=== PATIENT | male | born 1960 | race Caucasian/White ===

== ENCOUNTER 2020-05-16 15:36 | Inpatient (IN) | payer OTHER ==
[~2020-05-16] VITALS: Ht 180.3 cm; Wt 74.2 kg
--- NOTE | 2020-05-16 15:44 | PHYS DOC ---
Past History Past Medical History: Hypertension Adult General HPI HPI Patient is a 60yo male presenting from home via EMS for weakness. Patient lives with sister and brother in law and was seen having a witnessed mechanical fall in kitchen fall backwards onto backside, no LOC, did not hit head. Sister could not get him up and subsequently called EMS for assistance. On arrival, patient hypertensive without any other abnormalities. Sister expressed concern for potential UTI as he has history of this causing similar episodes of weakness in the past. Patient reports history of HTN, unknown what prior medication he was taking but has not had this in +1 year as "my sister couldn't afford to buy it for me". No fever or COVID 19 symptoms, no CP or other concerning symptoms reported Review of Systems Review of Systems Fourteen body systems of review of systems have been reviewed. See HPI for pertinent positives and negative responses, other uribe all other systems are negative, non-pertinent or non-contributory Physical Exam Physical Exam Constitutional: NAD, thin, poor hygeine, appears malnourished HENT: Normocephalic, atraumatic, bilateral external ears normal, oropharynx moist, no oral exudates, nose normal. Eyes: PERRLA, EOMI, conjunctiva normal, no discharge. Neck: Normal range of motion, no tenderness, supple, no stridor. Cardiovascular: Heart rate regular, sinus rhythm, no murmurs rubs or gallops Lungs & Thorax: Bilateral breath sounds clear to auscultation Abdomen: Bowel sounds normal, soft, no tenderness, no masses, no pulsatile masses. Nonsurgical abdomen, no peritoneal signs Skin: Warm, dry, no erythema, no rash. Back: No tenderness, no CVA tenderness. Extremities: No tenderness, no cyanosis, no clubbing, ROM intact, no edema. Neurologic: Alert and oriented X 3, grossly normal motor & sensory function, no focal deficits noted. Psychologic: Flat affect, judgement normal, depressed mood Current Patient Data Vital Signs Vital Signs Date Time Temp Pulse Resp B/P (MAP) Pulse Ox O2 Delivery O2 Flow Rate FiO2 05/16/20 19:31 87 20 204/115 (144) 95 05/16/20 15:45 98.4 Room Air Lab Results Laboratory Tests Test 05/16/20 15:44 White Blood Count 10.0 x10^3/uL (4.0-11.0) Red Blood Count 5.74 x10^6/uL (4.30-5.70) Hemoglobin 15.2 g/dL (13.0-17.5) Hematocrit 47.3 % (39.0-53.0) Mean Corpuscular Volume 82 fL (79-100) Mean Corpuscular Hemoglobin 27 pg (25-35) Mean Corpuscular Hemoglobin Concent 32 g/dL (31-37) Red Cell Distribution Width 14.3 % (11.5-14.5) Platelet Count 353 x10^3/uL (140-400) Neutrophils (%) (Auto) 71 % (31-73) Lymphocytes (%) (Auto) 21 % (24-48) Monocytes (%) (Auto) 6 % (0-9) Eosinophils (%) (Auto) 1 % (0-3) Basophils (%) (Auto) 1 % (0-3) Neutrophils # (Auto) 7.1 x10^3uL (1.8-7.7) Lymphocytes # (Auto) 2.1 x10^3/uL (1.0-4.8) Monocytes # (Auto) 0.6 x10^3/uL (0.0-1.1) Eosinophils # (Auto) 0.1 x10^3/uL (0.0-0.7) Basophils # (Auto) 0.1 x10^3/uL (0.0-0.2) Sodium Level 140 mmol/L (136-145) Potassium Level 2.4 mmol/L (3.5-5.1) Chloride Level 100 mmol/L (98-107) Carbon Dioxide Level 34 mmol/L (21-32) Anion Gap 6 (6-14) Blood Urea Nitrogen 9 mg/dL (8-26) Creatinine 1.3 mg/dL (0.7-1.3) Estimated GFR (Cockcroft-Gault) 56.7 BUN/Creatinine Ratio 7 (6-20) Glucose Level 176 mg/dL (70-99) Calcium Level 9.1 mg/dL (8.5-10.1) Magnesium Level 2.0 mg/dL (1.8-2.4) Total Bilirubin 0.6 mg/dL (0.2-1.0) Aspartate Amino Transf (AST/SGOT) 19 U/L (15-37) Alanine Aminotransferase (ALT/SGPT) 18 U/L (16-63) Alkaline Phosphatase 100 U/L (46-116) Total Protein 7.4 g/dL (6.4-8.2) Albumin 3.7 g/dL (3.4-5.0) Albumin/Globulin Ratio 1.0 (1.0-1.7) EKG EKG EKG ordered and interpreted by myself at 1606 hrs. as sinus rhythm at 81 bpm, unremarkable intervals, no axis deviation, no ischemic findings, no STEMI Radiology/Procedures Radiology/Procedures [] Heart Score HEART Score for Chest Pain: HEART Score for Chest Pain Response (Comments) Value History Slighlty/Non-Suspicious 0 ECG Normal 0 Age >45 - < 65 1 Risk Factors 1 or 2 Risk Factors 1 Troponin < Normal Limit 0 Total 2 Risk Factors: Risk Factors: DM, Current or recent (<one month) smoker, HTN, HLP, family history of CAD, obesity. Risk Scores: Risk Factors: DM, Current or recent (<one month) smoker, HTN, HLP, family history of CAD, obesity. Course & Med Decision Making Course & Med Decision Making Pertinent Labs and Imaging studies reviewed. (See chart for details) Discussed HTN and hypokalemia in dangerous ranges. 40meq KDur and 20mg Lisinopril administered Dr. Mercado contacted and case discussed, he agreed for admission under his care for continued medical management I updated patient on proposed plan of care and he was amenable. All questions and concerns addressed prior to ED transport to [facility] in stable condition Dragon Disclaimer Dragon Disclaimer This electronic medical record was generated, in whole or in part, using a voice recognition dictation system. Departure Departure: Impression: Primary Impression: Hypokalemia Additional Impression: HTN (hypertension) Disposition: 09 ADMITTED INPT THIS HOSP Admitting Physician: Saroj Mercado Condition: STABLE Problem Qualifiers NETTIE MARTINS DO May 16, 2020 15:44
[2020-05-16 16:18] LABS: BASO # 0.1 x10^3/uL (0.0-0.2); BASO % 1 % (0-3); EOS # 0.1 x10^3/uL (0.0-0.7); EOS % 1 % (0-3); HEMATOCRIT 47.3 % (39.0-53.0); HEMOGLOBIN 15.2 g/dL (13.0-17.5); LYMPH # 2.1 x10^3/uL (1.0-4.8); LYMPH % 21 % (24-48); MEAN CORPUSCULAR HEMOGLOBIN 27 pg (25-35); MEAN CORPUSCULAR HGB CONC 32 g/dL (31-37); MEAN CORPUSCULAR VOLUME 82 fL (79-100); MONO # 0.6 x10^3/uL (0.0-1.1); MONO % 6 % (0-9); NEUT # 7.1 x10^3uL (1.8-7.7); NEUT % 71 % (31-73); PLATELET COUNT 353 x10^3/uL (140-400); RED BLOOD COUNT 5.74 x10^6/uL (4.30-5.70); RED CELL DISTRIBUTION WIDTH 14.3 % (11.5-14.5)
[2020-05-16 16:37] LABS: ALBUMIN 3.7 g/dL (3.4-5.0); CALCIUM 9.1 mg/dL (8.5-10.1); CREATININE 1.3 mg/dL (0.7-1.3); GFR 56.7; TOTAL BILIRUBIN 0.6 mg/dL (0.2-1.0); TOTAL PROTEIN 7.4 g/dL (6.4-8.2)
[2020-05-16 16:39] LABS: POTASSIUM 2.4 mmol/L (3.5-5.1)
--- NOTE | 2020-05-16 17:15 | EKG ---
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
[2020-05-16] MEDS ORDERED: POTASSIUM CL 40MEQ IN 0.9%NACL 1,000 ML IV ONE (17:30)
[2020-05-16] MEDS ORDERED: POTASSIUM CHLORIDE 20 MEQ TABLET.ER. PO ONE (17:30)
[2020-05-16] MEDS ORDERED: LISINOPRIL 10 MG TABLET PO ONE (17:45)
--- NOTE | 2020-05-16 19:41 | NUR ---
The patient, GALLO JARRETT, 60 y/o, M admitted by TINY CASTANO MD, was given written information regarding hospital policies, unit procedures and contact persons. Valuables were checked and documented. Vitals taken. Pt is A&Ox4, up with 1 assist, has expressive aphasia due to stroke in 2019. Pt is currently in bed watching TV. Will continue to monitor.
[2020-05-16 21:52] VITALS: BP 175/84
--- NOTE | 2020-05-16 22:50 | NUR ---
PT UNABLE TO VERIFY MEDICATIONS OR WHAT DR HE SEES. CALLED BROTHER KWABENA TO VERIFY MEDICATIONS AND DOCTOR OF THE PT. NO ANSWER
--- NOTE | 2020-05-16 22:59 | NUR ---
CALLED TO UPDATE ON PTS CONDITION. DIDNT WANT TO ORDER ANY MEDICATION TO TREAT PTS ELEVATED BLOOD PRESSURE. STATED HE WILL WRITE A SCRIPT FOR THE PT IN THE MORNING AND IS HOPING TO SEND HIM HOME.
[2020-05-16 23:34] VITALS: BP 136/72
[2020-05-17 06:00] VITALS: BP 177/97
[2020-05-17 06:27] LABS: BILIRUBIN,URINE NEG (NEG); CLARITY,URINE CLEAR; COLOR,URINE AMBER; GLUCOSE,URINE NEG (NEG)
[2020-05-17 06:28] LABS: BACTERIA,URINE 0 /HPF (0-FEW); HYALINE CASTS, URINE OCC /HPF; NITRITE,URINE NEG (NEG); RBC,URINE 0 /HPF (0-2); SQUAMOUS EPITHELIAL CELL,UR OCC /LPF
[2020-05-17 06:37] LABS: CALCIUM 8.9 mg/dL (8.5-10.1); CREATININE 1.3 mg/dL (0.7-1.3); GFR 56.7
[2020-05-17 07:13] LABS: POTASSIUM 2.7 mmol/L (3.5-5.1)
--- NOTE | 2020-05-17 07:21 | NUR ---
CRITICAL LAB: CRITICAL POTASSIUM PAGED TO DR. CASTANO. ORDERS RECEIVED. WILL CONTINUE TO MONITOR. LETY VANCE
[2020-05-17] MEDS ORDERED: MAGNESIUM SULFATE 1GM 100 ML IV ONE (07:30)
[2020-05-17] MEDS: POTASSIUM CHLORIDE 20 MEQ TABLET.ER. PO SCH ×2 (07:46→19:49)
--- NOTE | 2020-05-17 08:46 | HP ---
ADMIT DATE: 05/16/2020 ATTENDING PHYSICIAN: Dr. Castano. CHIEF COMPLAINT: Weakness. HISTORY OF PRESENT ILLNESS: The patient is a 60-year-old gentleman with no local physician. He has been noncompliant. His blood pressure was markedly elevated. He states that his sister did not have any money and could not afford to buy his medication. He fell at home. No loss of consciousness. He has had chronic back pain. He was very weak. He was also found to have a serum potassium level of 2.7 mEq per liter. He is not on a diuretic. He does not admit to drinking any alcohol. He is a nonsmoker. His blood pressure was over 200 mmHg. He was admitted then for treatment of generalized weakness, labile hypertension, noncompliance of meds and idiopathic hypokalemia. PAST MEDICAL HISTORY: Significant for essential hypertension. He has had chronic low back pain. In fact, he is disabled from chronic back pain. SOCIAL HISTORY: He is never , no children. FAMILY HISTORY: Mom at age 75 of heart failure. Father is alive in his 80s, history is unclear. REVIEW OF SYSTEMS: Significant for the generalized debilitation. He is very simple in nature. He could not provide any further history. All other systems reviewed and turned to be negative. There is no COVID exposure. PHYSICAL EXAMINATION: GENERAL: When I saw him, this is a pleasant gentleman who was in no acute distress. VITAL SIGNS: Initial BP in the ER was 218/126. When I got to see him, it had come down to the 130 systolic. Temperature 98.5 degrees Fahrenheit, pulse rate 78 and regular, oxygen saturation 98% on room air. HEENT: Head is without trauma. Pupils are reactive. Sclerae nonicteric. Oropharynx clear. Mucous membranes dry. NECK: Supple, no bruits. LUNGS: Otherwise clear to auscultation. CARDIOVASCULAR: Showed regular heart tones. No gallops. ABDOMEN: Soft, scaphoid, nontender. EXTREMITIES: Showed no cyanosis or muscle wasting, no edema. NEUROLOGIC: Focally intact, pleasantly confused. Speech is fluent. SKIN: Warm and dry. PERTINENT LABORATORY STUDIES: His hemoglobin is 15.2 g/dL with a white count of 10,000. Potassium on admission was 2.4 mEq, sodium 140, creatinine 1.3 mg percent, nonfasting blood sugar 176. Transaminases were normal. Magnesium level is 2.0. Urinalysis was fairly clear. ASSESSMENT: 1. A 60-year-old gentleman with labile hypertension, noncompliance of medication. 2. Generalized weakness. 3. Hypokalemia, etiology is unclear. 4. Chronic low back pain and debility. 5. Probable developmental delay. PLAN: 1. Admit to the inpatient unit. 2. Gentle IV hydration. 3. Judicious potassium and magnesium replacement. 4. I have elected to start him on lisinopril 20 mg b.i.d. and monitoring blood pressure. 5. Physical therapy evaluation. TINY CASTANO MD DR: DARLENE/shola JOB#: [id number] / [id number]
[2020-05-17] MEDS ORDERED: FLU VACC QS 2020-21(6MOS+)/PF 0.5 ML SYRINGE. VAX IM ONE (09:00)
[2020-05-17 11:50] VITALS: BP 190/94
[2020-05-17 15:55] VITALS: BP 144/78
--- NOTE | 2020-05-17 18:45 | NUR ---
NURSING NOTE PT IN BED UPON MEDICATION ADMINISTRATION AND ASSESSMENT. PT COMPLIANT WITH MEDICATIONS. PT RESTING IN BED TODAY. PT INDEPENDENT WITH ADLS. WILL CONTINUE TO MONITOR. LETY VANCE
[2020-05-17 20:11] VITALS: BP 184/94
[2020-05-17] MEDS: LISINOPRIL 20 MG TABLET PO SCH (21:02)
[2020-05-17 23:18] VITALS: BP 160/89
[2020-05-18 05:35] VITALS: BP 178/105
--- NOTE | 2020-05-18 05:44 | NUR ---
Dr. Mercado telephoned for orders for morning vitals with BP at 178/105. recommended to give morning am lisinopril.
[2020-05-18] MEDS: LISINOPRIL 20 MG TABLET PO SCH ×2 (06:01→20:14)
[2020-05-18 06:06] LABS: CALCIUM 8.4 mg/dL (8.5-10.1); CREATININE 1.1 mg/dL (0.7-1.3); GFR 68.8
[2020-05-18 06:07] LABS: POTASSIUM 2.9 mmol/L (3.5-5.1)
[2020-05-18] MEDS: POTASSIUM CHLORIDE 20 MEQ TABLET.ER. PO SCH ×4 (07:56→20:13)
[2020-05-18 10:51] VITALS: BP 141/79
[2020-05-18 15:01] VITALS: BP 157/82
[2020-05-18 19:47] VITALS: BP 159/84
[2020-05-18 23:03] VITALS: BP 172/100
--- NOTE | 2020-05-19 03:40 | PN ---
DATE: 05/18/2020 SUBJECTIVE: The patient is resting, slightly propped up in bed, in no apparent distress. He apparently was admitted with generalized weakness and profound hypokalemia, has also chronic low back pain and labile hypertension. His initial lab work showed a serum potassium of 2.4. His bicarbonate was elevated and his blood sugar also was slightly elevated; however, the patient denied any nausea or vomiting. Denied any diarrhea or constipation. Denied any diuretics. PHYSICAL EXAMINATION: GENERAL: When I examined him this afternoon, he looked well and was clearly in no apparent respiratory distress. No pallor, jaundice, cyanosis or thyromegaly. No jugular venous distention. No limb edema. VITAL SIGNS: His heart rate was 87, blood pressure was 157/82, temperature was 97.6, respiratory rate was 18 and oxygen saturation was 96%. HEAD, EYES, EARS, NOSE, AND THROAT: Showed normocephalic, atraumatic. NECK: Supple. HEART: Showed normal first and second heart sounds with no gallop, rub or murmur. CHEST: Showed central trachea, equal bilateral chest expansion, air entry, vesicular sounds. No crepitation or rhonchi. ABDOMEN: Distended, soft, nontender. NEUROLOGIC: He was very soft spoken, but otherwise responds appropriately. All cranial nerves are intact. He moves extremities without difficulty. He apparently ambulates without assistance or assistive devices. LABORATORY DATA: His lab work as of yesterday showed a serum sodium 140, potassium 2.9, chloride 103, bicarbonate 33, anion gap of 4, BUN 15, creatinine 1.1, estimated GFR was 68 mL per minute, his glucose 126, calcium was 8.4. His white cell count was 10,000, hemoglobin 15, hematocrit 47, MCV 82, and platelet count 353,000. His urinalysis is essentially unremarkable. ASSESSMENT: In summary, this is a 60-year-old male patient with hypertension, hypokalemia with metabolic alkalosis making the possibility of Conn syndrome highly likely. He apparently has had history of stroke before, chronic back pain. PLAN: My plan is to replenish his potassium. Continue with the lisinopril. I will also check his morning cortisol and ACTH and also arrange for arterial Doppler ultrasound to rule out renal artery stenosis and decide on further management accordingly. Given that his potassium is still low, I will arrange to give him 40 mEq of potassium every hour x3 this afternoon and we will repeat all his lab work tomorrow morning. DL HUNTLEY MD DR: CHUY/shola JOB#: [id number] / [id number]
[2020-05-19 05:20] VITALS: BP 182/82
--- NOTE | 2020-05-19 05:21 | NUR ---
PT WITH ELEVATED BP THIS AM: 182/82, PULSE 75. DR HUNTLEY NOTIFIED, ORDERED TO GIVE 0900 LISINOPRIL NOW.
[2020-05-19] MEDS: LISINOPRIL 20 MG TABLET PO SCH (05:36)
[2020-05-19 06:42] LABS: CALCIUM 8.5 mg/dL (8.5-10.1); CREATININE 1.2 mg/dL (0.7-1.3); GFR 62.2; POTASSIUM 3.9 mmol/L (3.5-5.1)
[2020-05-19] MEDS: POTASSIUM CHLORIDE 20 MEQ TABLET.ER. PO SCH ×2 (09:00→14:16)
[2020-05-19 11:15] VITALS: BP 170/82
--- NOTE | 2020-05-19 13:36 | RAD ---
RENAL BILAT RENAL DUPLEX CO History: Reason: hypertension and hypokalemia / Spl. Instructions: / History: Comparison: None. Technique: Multiple grayscale, color flow, and Doppler spectral waveform analysis images of the abdominal aorta and renal arteries were obtained. Findings: Abdominal aorta peak systolic velocity: 104 cm/sec. Right main renal artery peak systolic velocity: 117 cm/sec. Right renal artery to aorta ratio: 1.1 Left main renal artery peak systolic velocity: 131 cm/sec. Left renal artery to aorta ratio: 1.3 Renal veins are patent. IVC unremarkable. The right kidney measures 10.4 x 5.8 x 4.5 cm. The left kidney measures 11.2 x 4.7 x 4.0 cm. Kidneys are normal in echotexture. No hydronephrosis. Mildly elevated bilateral renal artery resistive index on the right 0.76 and left 0.79. Thick-walled urinary bladder. IMPRESSION: 1. No evidence of renal artery stenosis. 2. Mildly elevated bilateral renal artery resistive indices, may indicate medical renal disease. 3. Thick-walled urinary bladder, may relate to chronic outlet obstruction or cystitis. Electronically signed by: Jose Riddle DO (05/19/2020 1:33 PM) [id number]
[2020-05-19] MEDS ORDERED: LISI-334 PO (14:57)
--- NOTE | 2020-05-19 15:55 | NUR ---
NURSING NOTE: DISCHARGE PT DISCHARGED VIA HOME WITH BROTHER. WRITTEN AND VERBAL DISCHARGE INSTRUCTIONS GIVEN, VERBAL UNDERSTANDING RECEIVED. IV REMOVED. RX FOR LISINOPRIL GIVEN. NO FURTHER QUESTIONS. LETY VANCE
--- NOTE | 2020-05-19 22:32 | DS ---
DATE OF DISCHARGE: 05/19/2020 HOSPITAL COURSE: The patient is a 60-year-old male patient who was admitted with severe weakness, was found to have profound hypokalemia. His serum potassium was only 2.2. His blood pressure was extremely high on admission. In fact, his blood pressure on arrival was 204/115. His chemistry also showed that he has metabolic alkalosis making the possibility of primary hyperaldosteronism very highly likely. We did succeed in replenishing his potassium from 2.2, went up to 3.9. I did check his ACTH and serum cortisol. We continued him on lisinopril and did well and his blood pressure actually is much better controlled with lisinopril. I did also Doppler ultrasound of both renal arteries to rule out the possibility of renal artery stenosis and according to the radiologist, the patient has no evidence of renal artery stenosis. He has mildly elevated bilateral renal artery resistive indices may indicate medical renal disease. He has also had thick walled urinary bladder may relate to chronic outlet obstruction or cystitis. PHYSICAL EXAMINATION: GENERAL: When I saw him this afternoon, the patient was resting flat, comfortably in bed, in no apparent distress. There is no pallor, jaundice, cyanosis or thyromegaly. No jugular venous distention. No limb edema. VITAL SIGNS: His heart rate was 72, blood pressure was 170/80, temperature was 98.2, respiratory rate was 18 and oxygen saturation was 98%. HEAD, EYES, EARS, NOSE AND THROAT: Showed normocephalic, atraumatic. NECK: Supple. CARDIAC: Normal first and second heart sounds. No gallop, rub or murmur. CHEST: Clear to auscultation. No crepitation or rhonchi. ABDOMEN: Distended, soft, nontender. NEUROLOGIC: He was awake, alert with a very low monotonous speech. All his cranial nerves are intact. He moves extremities spontaneously. He ambulates without assistance or assistive devices. LABORATORY DATA: This morning showed a serum sodium 141, potassium 3.9, chloride 106, bicarbonate 31, anion gap of 4, BUN 15, creatinine 1.2, estimated GFR was 63 mL per minute. His glucose 122 and calcium was 8.5. FINAL DISCHARGE DIAGNOSES: Hypertensive urgency, profound hypokalemia, previous history of stroke. The patient was discharged on lisinopril 20 mg twice a day. I did send blood for morning cortisol as well as ACTH, the result of which is still pending. My clinical impression is that the patient probably has coronary syndrome and he might benefit from measurement of his aldosterone and rennin values; however, he wants to go home. Unfortunately, he has no insurance. I recommended that he should apply for Medicaid and perhaps consider to look for a primary care physician as he is likely to have low potassium again. DL HUNTLEY MD DR: CHUY/shola JOB#: [id number] / [id number]
== END 2020-05-19 15:56 | disposition home or self-care (01) | DRG 641 ==
LOC: ER 15:36 → 1 SOUTH 18:00
PROVIDERS: ADMIT Hospitalist; ATTEND Hospitalist
DX: E87.6 Hypokalemia (principal); E87.3 Alkalosis; I16.0 Hypertensive urgency; G89.29 Other chronic pain; E26.9 Hyperaldosteronism, unspecified; I10 Essential (primary) hypertension; Z82.49 Family history of ischemic heart disease and other diseases of the circulatory system; Z86.73 Personal history of transient ischemic attack (TIA), and cerebral infarction without residual deficits; Z91.14 Patient's other noncompliance with medication regimen
CPT/HCPCS: 36415; 76770; 80048; 80053; 81001; 82024; 82533; 82947; 83735; 85025; 90471; 90686; 93005; 99285; J3475

== ENCOUNTER 2020-05-21 22:43 | Inpatient (IN) | payer MEDICAID ==
[~2020-05-21] VITALS: Ht 180.3 cm; Wt 74.6 kg
[~2020-05-21 22:43] MED LIST: LISI-334 PO
--- NOTE | 2020-05-21 23:11 | PHYS DOC ---
Past History Past Medical History: Hypertension Past Surgical History: No Surgical History Alcohol Use: None General Adult EDM: Chief Complaint: SHORTNESS OF BREATH HPI: HPI: ".. I feeling short of breath...oh I don't know.."." My brother wanted me .. to come in..." Patient is a 60 year old male who presents with above hx and complaints of dyspnea and confusion. Pt.presented to ED , dirty clothes, urinated soaked pants , no coat, and no shoes. Pt. is very poor historian. Recently admitted for accelerated HTN. ( See prior reports Dr. HAMPTON). Patient has past medical of hypertension, chronic low back pain, history of disability, and a Cognitive deficit. Patient denies any recent travel. Patient denies any specific ill contacts. Patient denies any fever or chills. Patient denies any history of immunosuppression. Review of Systems: Review of Systems: Constitutional: Denies fever or chills Eyes: Denies change in visual acuity HENT: Denies nasal congestion or sore throat Respiratory: Hx of increased shortness of breath Cardiovascular: Denies chest pain or edema GI: Denies abdominal pain, nausea, vomiting, bloody stools or diarrhea : Denies dysuria Musculoskeletal: Denies back pain or joint pain Integument: Denies rash Neurologic: Denies headache, focal weakness or sensory changes Endocrine: Denies polyuria or polydipsia Lymphatic: Denies swollen glands Psychiatric: Denies depression or anxiety Family History: Family History: Mother reportedly of heart failure at age 75. Father reportedly lives at 80 years old. Current Medications: Current Meds: See nursing for home meds Allergies: Allergies: Allergies Coded Allergies Type Severity Reaction Last Updated Verified No Known Drug Allergies 05/16/20 No Physical Exam: PE: Constitutional: moderate acute distress, discharge old, dirty and appearance. Appears to be somewhat confused HENT: Normocephalic, atraumatic, bilateral external ears normal, oropharynx moist, no oral exudates, nose normal. Edwards unkept Eyes: PERRLA, EOMI, conjunctiva normal, no discharge. [] Neck: Normal range of motion, no tenderness, supple, no stridor. [] Cardiovascular: Tachycardia heart rate regular rhythm, no murmur, PMI to the left Lungs & Thorax: Bilateral breath sounds equal apex with scattered wheezes and bilateral basilar crackles on auscultation [] Abdomen: Bowel sounds normal, soft, no tenderness, no masses, no pulsatile masses. Obvious incontinence of urine Skin: Warm, dry, no erythema, no rash. Soiled. Poor turgor Back: Low back pain or tenderness, no CVA tenderness. [] Extremities: No tenderness, no cyanosis, no clubbing, ROM intact, no edema. Arthritic changes. No cording appreciated Neurologic: Alert and oriented X 3, moves extremities on request, has distal sensory,, no gross focal deficits noted. Shuffles when he walks Psychologic: Affect flat, judgement appears impaired, possible chronic cognitive deficit, mood normal. [] EKG: EKG: Plantar rotation EKG shows a sinus rhythm at 90 bpm. There is some nonspecific T wave changes. No findings acute STEMI of contralateral changes. There is some artifact from movement. [] Radiology/Procedures: Radiology/Procedures: [][place] [address] IMAGING REPORT Signed PATIENT: GALLO JARRETT ACCOUNT: [id number] : 1960 LOCATION: ER AGE: 60 SEX: M EXAM STATUS: REG ER ORD. PHYSICIAN: MAYRA DO MD REASON: htn, dyspnea PROCEDURE: PORTABLE CHEST 1V PORTABLE CHEST 1V History: Reason: htn, dyspnea / Spl. Instructions: / History: Comparison: None. Findings: No consolidation or pleural effusion. Normal heart size. No pneumothorax. Impression: 1. No acute cardiopulmonary process. Electronically signed by: Jose Riddle DO (05/22/2020 12:15 AM) [facility] DICTATED AND SIGNED BY: JOSE RIDDLE DO DATE: 05/22/20 0015 CC: MAYRA DO MD; PCP,NO ~MTH0 0 Heart Score: HEART Score for Chest Pain: HEART Score for Chest Pain Response (Comments) Value History Slighlty/Non-Suspicious 0 ECG Nonspecific Repolarizatio 1 Age >45 - < 65 1 Risk Factors 1 or 2 Risk Factors 1 Troponin < Normal Limit 0 Total 3 Risk Factors: Risk Factors: DM, Current or recent (<one month) smoker, HTN, HLP, family history of CAD, obesity. Risk Scores: Score 0 - 3: 2.5% MACE over next 6 weeks - Discharge Home Score 4 - 6: 20.3% MACE over next 6 weeks - Admit for Clinical Observation Score 7 - 10: 72.7% MACE over next 6 weeks - Early Invasive Strategies Course & Med Decision Making: Course & Med Decision Making Pertinent Labs and Imaging studies reviewed. (See chart for details) Discussed presentation, testing and tx plan with Dr. Sewell. Plan admit and social service consult. Recurrent visits to ED for accelerated HTN. Impression: 1. Accelerated HTN 2. DM Glucose 148 3. Developmental delay versus decreased mental capacity 4. Hypokalemia 3.2 5. Noncompliant with medical regimen-outpatient treatment failure [] Dragon Disclaimer: Dragon Disclaimer: This electronic medical record was generated, in whole or in part, using a voice recognition dictation system. Departure Departure: Referrals: PCP,NO (PCP) Julee Disclaimer This chart was dictated in whole or in part using Voice Recognition software in a busy, high-work load, and often noisy Emergency Department environment. It may contain unintended and wholly unrecognized errors or omissions. MAYRA DO MD May 21, 2020 23:11
[2020-05-21] MEDS ORDERED: ASPIRIN CHEWABLE 81 MG TABLET. PO ONE (23:45)
[2020-05-21] MEDS ORDERED: IV RINGERS SOLUTION,LACTATED 1,000 ML IV SCH (23:45)
[2020-05-21] MEDS ORDERED: cloNIDine TTS-2 1 PATCH PATCH TD ONE (23:45)
[2020-05-21] MEDS ORDERED: cloNIDine HCL 0.1 MG TABLET PO ONE (23:45)
[2020-05-22] LABS: BASO # 0.1 x10^3/uL (0.0-0.2); BASO % 1 % (0-3); EOS # 0.1 x10^3/uL (0.0-0.7); EOS % 2 % (0-3); HEMOGLOBIN 13.9 g/dL (13.0-17.5); LYMPH # 1.4 x10^3/uL (1.0-4.8); LYMPH % 22 % (24-48); MEAN CORPUSCULAR HEMOGLOBIN 27 pg (25-35); MEAN CORPUSCULAR HGB CONC 32 g/dL (31-37); MEAN CORPUSCULAR VOLUME 82 fL (79-100); MONO # 0.4 x10^3/uL (0.0-1.1); MONO % 7 % (0-9); NEUT # 4.4 x10^3uL (1.8-7.7); NEUT % 68 % (31-73); PLATELET COUNT 281 x10^3/uL (140-400); RED BLOOD COUNT 5.24 x10^6/uL (4.30-5.70); RED CELL DISTRIBUTION WIDTH 14.7 % (11.5-14.5); WHITE BLOOD COUNT 6.4 x10^3/uL (4.0-11.0)
[2020-05-22 00:09] LABS: CALCIUM 9.1 mg/dL (8.5-10.1); GFR 76.7; POTASSIUM 3.2 mmol/L (3.5-5.1)
--- NOTE | 2020-05-22 00:18 | RAD ---
PORTABLE CHEST 1V History: Reason: htn, dyspnea / Spl. Instructions: / History: Comparison: None. Findings: No consolidation or pleural effusion. Normal heart size. No pneumothorax. Impression: 1. No acute cardiopulmonary process. Electronically signed by: Jose Riddle DO (05/22/2020 12:15 AM) [facility]
[2020-05-22 00:23] LABS: ALBUMIN 3.4 g/dL (3.4-5.0); DIRECT BILIRUBIN 0.1 mg/dL (0.0-0.2); TOTAL BILIRUBIN 0.2 mg/dL (0.2-1.0); TOTAL PROTEIN 6.5 g/dL (6.4-8.2)
[2020-05-22 01:00] LABS: BARBITURATES NEG (NEG); BENZODIAZEPINES NEG (NEG); CANNABINOIDS NEG (NEG); COCAINE NEG (NEG); METHADONE NEG (NEG); OPIATES NEG (NEG); PHENCYCLIDINE NEG (NEG)
[2020-05-22 01:03] LABS: AMPHETAMINE/METHAMPHETAMINE NEG (NEG)
[2020-05-22 01:05] LABS: BACTERIA,URINE 0 /HPF (0-FEW); BILIRUBIN,URINE NEG (NEG); CLARITY,URINE CLEAR; COLOR,URINE YELLOW; GLUCOSE,URINE 100 mg/dL (NEG); NITRITE,URINE NEG (NEG); RBC,URINE 0 /HPF (0-2); SQUAMOUS EPITHELIAL CELL,UR OCC /LPF; UROBILINOGEN,URINE 0.2 mg/dL (0.2 mg/dL); WBC,URINE OCC /HPF (0-4)
[2020-05-22] MEDS ORDERED: ACETAMINOPHEN 325 MG TABLET PO PRN (01:45)
[2020-05-22] MEDS ORDERED: cloNIDine TTS-2 1 PATCH PATCH TD ONE (01:45)
[2020-05-22] MEDS ORDERED: ONDANSETRON PF 4 MG/2 ML VIAL. IVP PRN (01:45)
[2020-05-22] MEDS ORDERED: POTASSIUM CHLORIDE 20 MEQ TABLET.ER. PO ONE ×2 (02:00→13:30)
[2020-05-22 02:50] VITALS: BP 161/92
[2020-05-22] MEDS ORDERED: IPRATRPIUM/ALBUTEROL 0.5/2.5MG 3 ML NEBU. ONE (05:31)
[2020-05-22] MEDS: IPRATRPIUM/ALBUTEROL 0.5/2.5MG 3 ML NEBU. NEB SCH ×4 (05:33→20:00)
[2020-05-22 06:44] VITALS: BP 136/72
[2020-05-22] MEDS ORDERED: POTASSIUM CHLORIDE 20 MEQ TABLET.ER. PO SCH (09:00)
[2020-05-22 10:33] VITALS: BP 156/82
[2020-05-22] MEDS: POTASSIUM CHLORIDE 20 MEQ TABLET.ER. PO SCH ×2 (13:39→21:33)
[2020-05-22 14:31] VITALS: BP 161/89
--- NOTE | 2020-05-22 15:03 | HP ---
ADMIT DATE: 05/22/2020 HISTORY OF PRESENT ILLNESS: The patient is a 60-year-old male patient who came to the Emergency Room complaining that he is short of breath; however, he stated also that his brother wanted him to come in. When he arrived to the Emergency Room, he was wearing dirty clothes, urinated soaked pants, no coat and no shoes. He was a very poor historian. He was recently discharged after a short admission for accelerated hypertension and marked hypokalemia. When I spoke to him again when he arrived to the hospital, he stated he does not want to go to his brother anymore and that it is time for him to move on, that his sister is going to take care of him. Unfortunately, he is very slow and I do not know whether he has some form of intellectual disability versus stroke. He was basically evaluated in the Emergency Room, has had lab work. His lab work again confirmed that he continued to have hypokalemia and his blood pressure was actually much better controlled compared to when he came last time. PAST MEDICAL HISTORY: Significant for hypertension, severe hypokalemia, previous CVA. PAST SURGICAL HISTORY: Unremarkable. FAMILY HISTORY: His mom at the age of 75 with heart failure. Father is alive in his 80s. SOCIAL HISTORY: He is single, never , has no children. He does not smoke, drink alcohol or use recreational drugs. He is on disability for chronic back pain. REVIEW OF SYSTEMS: The patient basically states that he is done with his brother and that it is time to move on to go and live with his sister. MEDICATIONS: He was discharged to continue on lisinopril 20 mg twice a day as well as potassium 20 mEq twice a day. PHYSICAL EXAMINATION: GENERAL: On arrival to the Emergency Room, the patient was apparently unkempt, but there was no pallor, jaundice, cyanosis or thyromegaly. No jugular venous distention. No lower limb edema. VITAL SIGNS: His heart rate on arrival was 69, blood pressure was 136/72, temperature was 98.1, respiratory rate was 16, and oxygen saturation was 96%. HEAD, EYES, EARS, NOSE AND THROAT: Normocephalic, atraumatic. NECK: Supple. HEART: Showed normal first and second heart sounds. No gallop, rub or murmur. CHEST: Clear to auscultation. No crepitation or rhonchi. ABDOMEN: Distended, soft, nontender. No guarding or rigidity. No organomegaly. All hernial orifices intact. Bowel sounds normal. NEUROLOGIC: He is awake, alert, very slow and sometimes difficult to understand. He has a very slow monotonous speech; however, all his cranial nerves are intact. EXTREMITIES: He moves extremities without difficulty. LABORATORY DATA: His lab work on arrival showed a white cell count of 6400, hemoglobin 14, hematocrit 43, MCV 82 and platelet count of 281,000 with normal manual differential. His prothrombin time and INR are normal. His chemistry showed a serum sodium of 145, potassium 3.2, chloride 107, bicarbonate 30, anion gap of 8, BUN 13, creatinine 1, estimated GFR was 76 mL per minute, his glucose 148, calcium was 9.1, magnesium 2. Total bilirubin, AST, ALT, alkaline phosphatase were normal. Total protein 6.5, albumin was 3.4, lipase 89. TSH was 2.932. He has 3 sets of cardiac enzymes, showed troponin to be 0.020. His urinalysis was unremarkable and urine drug screen was negative. He has had a chest x-ray, which basically showed no consolidation or pleural effusion, normal heart size, no pneumothorax. ASSESSMENT AND PLAN: In summary, this is a 60-year-old male patient who was admitted. According to him, he is apparently with a relationship that has soured his brother and that he is planning to go and live with his sister. It sounds that his brother does not want to take care of him anymore. He has hypertension, hypokalemia, previous CVA, has chronic back pain for which he is on disability and my plan is obviously to replenish his potassium and continue with lisinopril as well as his potassium, and I will consult the community mental health social worker tomorrow for perhaps placement in order to contact his sister to see if one of his sisters is willing to take care of him as he is clearly unable to take care of himself. DL HUNTLEY MD DR: CHUY/shola JOB#: [id number] / [id number]
[2020-05-22 19:00] VITALS: BP 167/94
[2020-05-22] MEDS: LISINOPRIL 20 MG TABLET PO SCH (21:33)
[2020-05-22 23:01] VITALS: BP 155/81
[2020-05-23 05:05] VITALS: BP 184/96
[2020-05-23] MEDS: IPRATRPIUM/ALBUTEROL 0.5/2.5MG 3 ML NEBU. NEB SCH (05:35)
[2020-05-23] MEDS: LISINOPRIL 20 MG TABLET PO SCH ×2 (05:47→21:01)
[2020-05-23 06:23] LABS: CALCIUM 8.7 mg/dL (8.5-10.1); CREATININE 1.1 mg/dL (0.7-1.3); GFR 68.8; POTASSIUM 4.3 mmol/L (3.5-5.1)
[2020-05-23 06:37] LABS: BASO % 1 % (0-3); EOS # 0.2 x10^3/uL (0.0-0.7); EOS % 3 % (0-3); HEMATOCRIT 39.3 % (39.0-53.0); HEMOGLOBIN 12.6 g/dL (13.0-17.5); LYMPH # 1.5 x10^3/uL (1.0-4.8); LYMPH % 25 % (24-48); MEAN CORPUSCULAR HEMOGLOBIN 27 pg (25-35); MEAN CORPUSCULAR HGB CONC 32 g/dL (31-37); MEAN CORPUSCULAR VOLUME 83 fL (79-100); MONO # 0.4 x10^3/uL (0.0-1.1); MONO % 7 % (0-9); NEUT # 4.1 x10^3uL (1.8-7.7); NEUT % 66 % (31-73); PLATELET COUNT 256 x10^3/uL (140-400); RED BLOOD COUNT 4.76 x10^6/uL (4.30-5.70); WHITE BLOOD COUNT 6.3 x10^3/uL (4.0-11.0)
[2020-05-23] MEDS: POTASSIUM CHLORIDE 20 MEQ TABLET.ER. PO SCH ×3 (08:52→21:01)
--- NOTE | 2020-05-23 09:04 | EKG ---
[address] [address] Test Date: 2020-05-21 Test Time: 23:02:39 Pat Name: GALLO JARRETT Department: Room: 113 A Gender: M [employer] Supervisor: YOSI : [id number] Requested By: MAYRA DO Order Number: [id number] Reading MD: Measurements Intervals [place] Rate: 90 P: 48 VT: 156 QRS: 59 QRSD: 92 T: 112 QT: 354 QTc: 437 Interpretive Statements SINUS RHYTHM T ABNORMALITY IN ANTEROLATERAL LEADS ABNORMAL ECG RI6.02 No previous ECG available for comparison
[2020-05-23 11:00] VITALS: BP 165/92
[2020-05-23 15:00] VITALS: BP 152/79
[2020-05-23 19:00] VITALS: BP 185/96
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
[2020-05-23 23:00] VITALS: BP 171/90
[2020-05-24 05:15] VITALS: BP 182/83
[2020-05-24] MEDS: LISINOPRIL 20 MG TABLET PO SCH ×2 (08:29→20:43)
[2020-05-24] MEDS: POTASSIUM CHLORIDE 20 MEQ TABLET.ER. PO SCH ×3 (08:30→20:42)
[2020-05-24 10:56] VITALS: BP 196/98
[2020-05-24 15:19] VITALS: BP 163/78
[2020-05-24 20:32] VITALS: BP 148/75
[2020-05-24 23:08] VITALS: BP 197/81
--- NOTE | 2020-05-25 00:38 | PN ---
DATE: 05/24/2020 SUBJECTIVE: The patient is resting, slightly propped up in bed, in no apparent respiratory distress. He is awake, alert, but at times confused. His RECJ-ZOXCX-1 antigen negative. The nursing staff did not voice any concerns that he has an uneventful night. PHYSICAL EXAMINATION: GENERAL: When I examined him, he looked pale, but no jaundice, cyanosis or thyromegaly. No jugular venous distention or limb edema. VITAL SIGNS: Her heart rate was 70, blood pressure was 163/78, temperature 98.2, respiratory rate 18 and oxygen saturation was 97% on room air. The rest of clinical exam is stable. His intake was 916, output was recorded. LABORATORY DATA: As of yesterday showed a white cell count 6300, hemoglobin 12.6, hematocrit 39, MCV 83 and platelet count 256,000. Serum sodium 143, potassium 4.3, chloride 108, bicarbonate 31, anion gap of 4, BUN 10, creatinine 1.1, estimated GFR was 69 mL per minute. His glucose 125, calcium was 8.7. ASSESSMENT: 1. Hypertension, very labile. 2. Hypokalemia, resolved. Potassium is 4.3. 3. Chronic back pain, for which he is on disability. 4. Previous cerebrovascular accident. 5. Severe self-care deficit. PLAN: Continue with antihypertensive medication. Continue potassium supplementation. Continue with physical and occupational therapy. However, mental health social worker is still working to see if can be placed in a correction facility, although without any insurance, is going to be difficult to place him anywhere. DL HUNTLEY MD DR: CHUY/shola JOB#: [id number] / [id number]
[2020-05-25 05:48] VITALS: BP 187/97
[2020-05-25] MEDS: LISINOPRIL 20 MG TABLET PO SCH (07:40)
[2020-05-25] MEDS: POTASSIUM CHLORIDE 20 MEQ TABLET.ER. PO SCH (07:41)
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
[2020-05-25 10:41] VITALS: BP 148/84
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
== END 2020-05-25 12:40 | DRG 641 ==
LOC: ER 22:43 → 1 SOUTH 05-22 01:30
PROVIDERS: ADMIT Internal Medicine; ATTEND Internal Medicine
DX: E87.6 Hypokalemia (principal); E11.9 Type 2 diabetes mellitus without complications; G89.29 Other chronic pain; I10 Essential (primary) hypertension; M54.5 Low back pain; Z20.828 Contact with and (suspected) exposure to other viral communicable diseases; I69.319 Unspecified symptoms and signs involving cognitive functions following cerebral infarction; Z82.49 Family history of ischemic heart disease and other diseases of the circulatory system; Z91.19 Patient's noncompliance with other medical treatment and regimen
CPT/HCPCS: 36415; 71045; 80048; 80076; 80307; 81001; 82550; 82947; 83690; 83735; 83880; 84443; 84484; 85025; 85610; 87426; 93005; 94640; 96360; 96361; G0238; J7120; U0003; 99285-25